=== PATIENT | male | born 1975 | race Caucasian/White ===

== ENCOUNTER 2020-06-18 22:21 | Emergency (ER) | payer OTHER ==
[~2020-06-18] VITALS: Ht 185.4 cm; Wt 99.8 kg
[2020-06-18 22:22] VITALS: BP 121/82; Ht 185.4 cm; Wt 99.8 kg
== END 2020-06-18 23:23 | disposition other institution (70) ==
LOC: ED 22:21
DX: Z02.89 Encounter for other administrative examinations (principal)